=== PATIENT | male | born 1995 | race Caucasian/White ===

== ENCOUNTER 2023-10-08 11:26 | Emergency (ER) | payer OTHER, BC ==
[2023-10-08] MEDS: Lidocaine 1% 5 ML VIAL INJECT ONE (11:50)
[2023-10-08] MEDS: Bacitracin/Neomycin/Polymyxin B Oint 0.9 GM U/D Packet TOP ONE (12:15)
== END 2023-10-08 12:25 | disposition home or self-care (01) ==
LOC: CC.ED 11:26
DX: S61.216A Laceration without foreign body of right little finger without damage to nail, initial encounter (principal); Z88.0 Allergy status to penicillin; Z79.899 Other long term (current) drug therapy; W22.8XXA Striking against or struck by other objects, initial encounter
CPT/HCPCS: 12002; 73140-F9; 99283; A9270-GY; J3490